=== PATIENT | female | born 1985 | race Caucasian/White ===

== ENCOUNTER → 2021-11-03 | Outpatient (REF) | LOC: M LABSMTC 11:10 | PROVIDERS: ATTEND Pediatrics | DX: Z20.828 Contact with and (suspected) exposure to other viral communicable diseases (principal) ==

== ENCOUNTER → 2021-12-21 | Outpatient (REF) | LOC: M LAB 13:59 | PROVIDERS: ATTEND Nurse Practitioner Adult Health | DX: Z01.84 Encounter for antibody response examination (principal) ==

== ENCOUNTER → 2023-01-20 | Outpatient (REF) | LOC: M LABSMTC 09:03 | PROVIDERS: ATTEND Family Medicine | DX: Z11.52 Encounter for screening for COVID-19 (principal) ==